=== PATIENT | male | born 1975 | race African-American/Black ===

== ENCOUNTER 2018-08-28 19:25 | Emergency (ER) | payer MEDICAID ==
[~2018-08-28] VITALS: Ht 175.3 cm; Wt 72.0 kg
[~2018-08-28 19:25] MED LIST: LEVO500T2 PO; OXCA150T5 PO; TRAZ-212 PO
[2018-08-28] MEDS ORDERED: CEPHALEXIN 250MG CAPSULE PO ONE (23:45)
[2018-08-28] MEDS ORDERED: KETOROLAC 60MG/2ML VIAL IM ONE (23:45)
[2018-08-28 23:58] VITALS: BP 132/84
== END 2018-08-29 | disposition home or self-care (01) ==
LOC: ER 19:25
DX: L73.2 Hidradenitis suppurativa (principal); F31.9 Bipolar disorder, unspecified; F20.9 Schizophrenia, unspecified; F17.200 Nicotine dependence, unspecified, uncomplicated; B20 Human immunodeficiency virus [HIV] disease
CPT/HCPCS: 96372; 99283; J1885

== ENCOUNTER 2020-12-02 12:17 | Emergency (ER) | payer MEDICAID ==
[~2020-12-02] VITALS: Ht 177.8 cm; Wt 80.0 kg
[~2020-12-02 12:17] MED LIST changes: -TRAZ-212 PO; +TRAZ-251 PO
[2020-12-02] MEDS ORDERED: SODIUM CHLORIDE 0.9% 1,000 ML IV ONE (12:45)
[2020-12-02 13:30] LABS: BASOPHILS % 0.2 % (0.0-2.0); EOSINOPHILS % 1.5 % (0.0-5.0); HEMATOCRIT. 33.2 % (42.0-52.0); HEMOGLOBIN. 11.6 g/dL (14.0-18.0); LYMPHOCYTES % 9.2 % (20.0-50.0); MEAN CORPUSCULAR HEMOGLOBIN 33.1 pg (28.0-32.0); MEAN CORPUSCULAR VOLUME 94.6 fL (80.0-94.0); MONOCYTES % 4.9 % (2.0-8.0); NEUTROPHILS % 84.2 % (40.0-76.0); PLATELET 233 x1000/uL (130-400); RED CELL DISTRIBUTION WIDTH 14.9 % (11.6-14.6)
[2020-12-02 13:31] LABS: CHLORIDE 107 mEq/L (98-107)
[2020-12-02 13:35] LABS: ETHANOL BLOOD < 10 mg/dL
[2020-12-02 13:42] LABS: *AMPHETAMINES SCREEN URINE PRESUMTIVE POSITIVE (NEGATIVE); *BARBITURATES SCREEN URINE NEGATIVE (NEGATIVE)
[2020-12-02 13:43] LABS: *BENZODIAZEPINES SCREEN URINE NEGATIVE (NEGATIVE); *COCAINE SCREEN URINE NEGATIVE (NEGATIVE); METHADONE URINE SCREEN NEGATIVE (NEGATIVE); OPIATES URINE SCREEN NEGATIVE (NEGATIVE); PHENCYCLIDINE URINE SCREEN NEGATIVE (NEGATIVE)
[2020-12-02 13:44] LABS: CANNABINOID URINE SCREEN PRESUMTIVE POSITIVE (NEGATIVE)
[2020-12-02] MEDS ORDERED: POTASSIUM CHLORIDE 20MEQ TABLET SR PO ONE (14:45)
[2020-12-02 18:48] VITALS: BP 122/80
== END 2020-12-02 19:06 | disposition home or self-care (01) ==
LOC: ER 12:17
DX: F19.10 Other psychoactive substance abuse, uncomplicated (principal); E87.6 Hypokalemia; F20.9 Schizophrenia, unspecified; F31.9 Bipolar disorder, unspecified; B20 Human immunodeficiency virus [HIV] disease; Z86.19 Personal history of other infectious and parasitic diseases
CPT/HCPCS: 36415; 70450; 80053; 80305; 80320; 85025; 96360; 96361; 99284; J7030; Z7610; G0480